=== PATIENT | female | born 1995 | race Caucasian/White ===

== ENCOUNTER 2024-01-25 15:54 | Outpatient (CLI) | payer BC, SELFPAY | END 2024-01-25 15:55 | disposition home or self-care (01) | PROVIDERS: PCP Student in an Organized Health Care Education/Training Program; Visit Provider Registered Nurse | DX: N93.9 Abnormal uterine and vaginal bleeding, unspecified (principal) | CPT/HCPCS: 80061; 82670; 83001; 83498; 84146; 84270; 84402; 84403; 84443 ==

== ENCOUNTER 2024-01-30 15:55 | Outpatient (CLI) | payer OTHER, SELFPAY | END 2024-01-30 15:56 | disposition home or self-care (01) | LOC: NFLDREF 02-20 08:16 | PROVIDERS: PCP Student in an Organized Health Care Education/Training Program; Referring Provider Student in an Organized Health Care Education/Training Program; Visit Provider Registered Nurse | DX: N92.6 Irregular menstruation, unspecified (principal) | CPT/HCPCS: 83520 ==

== ENCOUNTER 2024-03-05 13:37 | Outpatient (CLI) | payer OTHER, SELFPAY ==
--- NOTE | 2024-03-05 14:00 | CRLHL7_ITS ---
For Patients: As a result of the Century Cures Act, medical imaging exams and procedure reports are released immediately into your electronic medical record. You may view this report before your referring provider. If you have questions, please contact your health care provider. INDICATION: Irregular menstruation COMPARISON: none TECHNIQUE: 2D blanco scale and color Doppler images were acquired of the pelvis using a transabdominal and transvaginal approach. FINDINGS: Sonographic images demonstrate a normal size and smooth outer contour of the uterus. Uterus measures 6.9 cm in length by 3.4 cm in AP diameter by 5.0 cm in transverse dimension. The myometrium has a normal uniform echotexture. The endometrial lining appears normal and measures 5 mm in composite thickness. The right ovary measures 2.8 x 1.8 x 2.6 cm in size and the left ovary measures 3.7 x 2.0 x 2.1 cm. The ovaries demonstrate normal arterial and venous blood flow on color Doppler analysis. There are no suspicious fluid collections within the cul-de-sac. IMPRESSION: Normal pelvic ultrasound. Dictated by Fidel Vinson MD @ 03/06/2024 11:23:36 AM (Electronically Signed)
== END 2024-03-05 13:38 | disposition home or self-care (01) ==
LOC: US 13:39
PROVIDERS: PCP Student in an Organized Health Care Education/Training Program; Visit Provider Registered Nurse
DX: N92.6 Irregular menstruation, unspecified (principal)
CPT/HCPCS: 76830; 76856

== ENCOUNTER 2024-10-13 12:22 | Outpatient (CLI) | payer OTHER, SELFPAY | END 2024-10-13 12:23 | disposition home or self-care (01) | PROVIDERS: PCP Student in an Organized Health Care Education/Training Program; Visit Provider Advanced Practice Midwife | DX: Z34.01 Encounter for supervision of normal first pregnancy, first trimester (principal); Z67.21 Type B blood, Rh negative | CPT/HCPCS: 82306; 84702; 86850; 86900; 86901 ==

== ENCOUNTER 2024-10-15 13:00 | Outpatient (CLI) | payer OTHER, SELFPAY | END 2024-10-15 13:01 | disposition home or self-care (01) | LOC: NFLDREF 10-20 03:42 | PROVIDERS: PCP Student in an Organized Health Care Education/Training Program; Referring Provider Student in an Organized Health Care Education/Training Program; Visit Provider Midwife | DX: O20.9 Hemorrhage in early pregnancy, unspecified (principal) | CPT/HCPCS: 84702 ==

== ENCOUNTER 2024-10-17 12:13 | Outpatient (CLI) | payer OTHER, SELFPAY ==
--- NOTE | 2024-10-17 12:30 | CRLHL7_ITS ---
For Patients: As a result of the Century Cures Act, medical imaging exams and procedure reports are released immediately into your electronic medical record. You may view this report before your referring provider. If you have questions, please contact your health care provider. INDICATION: Bleeding in early COMPARISON: None TECHNIQUE: Wesley-scale and color Doppler of the g uterus from a transvaginal approach. Transvaginal ultrasound was necessary for better visualization of the uterine contents. FINDINGS: Last menstrual period: 08/28/2025 Estimated gestational age: 7 weeks 1 day FIRST TRIMESTER There is an intrauterine gestational sac that measures 38 x 8 x 24 mm for a mean sac diameter of 24 mm. This corresponds to a gestational age of 7 weeks 3 days. There is a normal yolk sac. An embryo is present with a crown-rump length of 9 mm, which corresponds to a gestational age of 6 weeks 6 days. Embryonic cardiac activity is present, at a rate of 123 bpm. There is a heterogeneously hypoechoic subchorionic hemorrhage that measures 1.2 x 0.5 x 2.2 cm. MATERNAL No worrisome ovarian or adnexal mass or cyst. Normal physiologic left corpus luteum cyst. Normal ovarian color Doppler flow. No pelvic free fluid. IMPRESSION: Single intrauterine gestation with an estimated gestational age of 6 weeks 6 days based on crown-rump length. There is a 2.2 centimeter perigestational/subchorionic hemorrhage. Dictated by Adele Franks MD @ 10/20/2024 7:26:34 AM (Electronically Signed)
== END 2024-10-17 12:14 | disposition home or self-care (01) ==
PROVIDERS: PCP Student in an Organized Health Care Education/Training Program; Visit Provider Advanced Practice Midwife
DX: O20.9 Hemorrhage in early pregnancy, unspecified (principal); Z3A.01 Less than 8 weeks gestation of pregnancy
CPT/HCPCS: 76817; 83021; 86592; 86703; 86704; 86706; 86762; 86787; 86803; 87086; 87340; 87491; 87591

== ENCOUNTER 2024-10-21 14:58 | Outpatient (CLI) | payer OTHER, SELFPAY ==
--- NOTE | 2024-10-21 15:00 | CRLHL7_ITS ---
For Patients: As a result of the Century Cures Act, medical imaging exams and procedure reports are released immediately into your electronic medical record. You may view this report before your referring provider. If you have questions, please contact your health care provider. INDICATION: First trimester scan, establish dates. TECHNIQUE: Real-time blanco-scale imaging of the pelvis was performed. FINDINGS: Sonographic imaging demonstrates a single living intrauterine gestation. The embryo demonstrates a regular cardiac rate measuring 154 beats per minute. The embryo`s crown-rump length measurement of 1.3 cm corresponds to a gestational age of 7 weeks 4 days with a sonographic due date of 06/05/2025 . There is a normal-appearing yolk sac. Subchorionic hemorrhage measuring 0.6 x 0.3 x 1.1 centimeters. IMPRESSION: Early intrauterine gestation. Gestational age calculated at 7 weeks 4 days with a sonographic due date of 06/05/2025. Small subchorionic hemorrhage measuring 0.6 x 0.3 x 1.1 cm. Dictated by Jenifer Andre MD @ 10/22/2024 7:43:33 AM (Electronically Signed)
== END 2024-10-21 14:59 | disposition home or self-care (01) ==
LOC: US 14:59
PROVIDERS: PCP Student in an Organized Health Care Education/Training Program; Visit Provider Advanced Practice Midwife
DX: Z34.91 Encounter for supervision of normal pregnancy, unspecified, first trimester (principal); O20.9 Hemorrhage in early pregnancy, unspecified; Z3A.01 Less than 8 weeks gestation of pregnancy
CPT/HCPCS: 76817

== ENCOUNTER 2024-11-05 22:52 | Emergency (ER) | payer OTHER, SELFPAY ==
--- OUTSIDE RECORDS SUMMARY | 2024-11-05 22:54 | XMS_ITS | Clinical Summary ---
Author Organization [facility] Address [place], [place] [address] Care Team Providers Care Inside Contractor Sales Name Role Phone Sirisha Nelson MD Primary Care Prov ider Allergies No known active allergies Medications No known medications Active Problems Problem Noted Date Diagnosed Date Pap smear for cervical cancer screening 10/24/19 Overview (10/24/2023): 10/2023 NIL/HPV negative. Plan: Pap/HPV due 10/2028. Resolved Problems Problem Noted Date Diagnosed Date Resolved Date Dysmenorrhea 12/09/2013 10/15/2023 Tachycardia, unspecified 11/25/2012 Encounters Date Type Department Care Team Description 10/21/2024 Orders Only [facility] Scanner 1 scan: (1-Ord) [facility] OB TRANSVAG[facility]AL, 10/21/2024 10/17/2024 Orders Only [facility] Scanner 1 scan: (1-Ord) [facility] TRAN[facility], 10/17/2024 from Last 3 Months Immunizations Name Administration Dates Next Due DTaP 06/05/2000, 7,05/26/1996,03/25,01/22/1996 DTaP-HIB (TriHIBIT) 02/10/1997 HIB HbOC (HibTITER) 05/26/1996,03/25/1996,1995 HPV 9 (Gardasil 9) 09/21/2016 Hepatitis B (Adult) 11/04/2019 Hepatitis B (Peds) 09/15/1996,01/22/1996, 996 Inactivated Polio Vaccine 06/05/2000 Influenza, IIV3 (Age >=3 years) 09/26/2010,11/22 Influenza, IIV4 10/24/2019 MENINGOCOCCAL VACCINE 2 VIAL 2MO-55YO (MENVEO) 12/09/2013,04/26/2011 MMR 06/05/2000,02/10/1997 Oral Polio Vaccine 05/26/1996,03/25/1996, 996 Tdap 07/18/2018,04/13/2008 Varicella Vaccine 04/26/2011,12/31/1996 Family History Medical History Relation Name Comments Graves' disease Brother Other Father idiopathic azam oedema Good Health Maternal Grandfather Heart Disease Maternal Grandmother stent Other Maternal Grandmother brain t umor, not sure if cancer, doing radiation to shrink it Good Health Mother Heart Disease Paternal Grandfather valve replaced Cancer-ovarian Paternal Grandmother Hyperlipidemia Paternal Grandmother Hypertension Paternal Grandmother Relation Name Status Comments Brother Father Maternal Grandfather Alive Maternal Grandmother Mother Paternal Grandfather Paternal Grandmother Alive Social History Tobacco Use Types Packs/Day Years Used Date Smoking Tobacco: Never Smokeless Tobacco: Never Tobacco Cessation:Counseling Given: Yes Alcohol Use Standard Drinks/Week Comments Yes 0 (1 standard drink = 0.6 oz pur e alcohol) weekends PHQ-2 Answer Date Recorded PHQ-2 TOTAL SCORE 0 10/15/2023 Social Connections Answer Date Recorded Do you often feel lonely or isolated from those around you? 0 10/15/2023 Financial Resource Strain Answer Date R ecorded Difficulty of Paying Living Expenses 3 10/15/2023 Difficulty of Paying Living Expenses Not on file 10/15/2023 Food Insecurity Answer Date Recorded Do you worry your food will run out before you are able to buy more? 1 10/15/2023 Transportation Needs Answer Date Record ed Does lack of transportation keep you from medica l appointments? 1 10/15/2023 Does lack of transportation keep you from work, meetings or getting things that you need? 1 10/15/2023 Housing Stability Answer Date Recorded What is your housing situation today? 1 10/15/2023 Utilities Answer Date Recorded Do you have trouble paying f or utilities (for example, heat, electricity, water, phone)? 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 Not on asif e Not on file Obstetrics History Last Filed Vital Signs Vital Sign Reading Time Taken Comments Blood Pressure 108/72 10/15/2023 3:24 PM CHAR CONVEYOR TENDER Pulse 77 10/15/2023 3:24 PM CHAR CONVEYOR TENDER Temperature 36.7 C (98.1 F) 10/24/2019 12:56 PM CHAR CONVEYOR TENDER Respiratory Rate - - Oxygen Saturation 100% 10/15/2023 3:24 PM CHAR CONVEYOR TENDER Inhaled Oxygen Concentration - - Weight 73 kg (161 lb) 10/15/2023 3:24 PM CHAR CONVEYOR TENDER Height 161.8 cm (5' 3.7) 10/15/2023 3:24 PM CHAR CONVEYOR TENDER Body Mass Index 27.9 10/15/2023 3:24 PM CHAR CONVEYOR TENDER Plan of Treatment Health Maintenance Due Date Last Done Comments HIV for age 15-65 2010 Hepatitis C screening for age 18-79 2013 COVID-19 vaccine series ( season) 2024 Influenza for age 9-49 06/01/2024 0, 09/26/2010, 2006 BMI (ht and wt on same day) for age 18+ 10/15/2024 10/15/2023, 10/24/2019, 07/18/2018, Additional history exists Depression screening for age 12+ 10/15/2024 10/15/2023, 10/24/2019, 07/18/2018, Additional history exists Tetanus booster 07/18/2028 07/18/2018, 04/13/2008 Pap test for age 21-65 10/15/2028 , 10/15/2023, 07/18/2018 Tdap Completed 07/18/2018, 04/13/2008 Pneumococcal series for age 6-49 Aged Out No longer eligible based on patient's age to complete this topic Procedures Procedure Name Priority Date/Time Associated Diagnosis Comments SCAN-ULTRASOUND REPORT 10/21/2024 12:00 AM CHAR CONVEYOR TENDER SCAN-ULTRASOUND REPORT 10/17/2024 12:00 AM CHAR CONVEYOR TENDER HPV HIGH RISK Routine 10/15/2023 4:00 PM CHAR CONVEYOR TENDER Cervical cancer screening from Last 3 Months or Most Recently Relevant to Health Maintenance Results * SCAN-ULTRASOUND REPORT (10/21/2024 12:00 AM CHAR CONVEYOR TENDER) Only the most recent of2 resultswithin the time period is included. Anatomical Region Laterality Modality Other us Scanner OTHER Final Result * HPV HIGH RISK (10/15/2023 4:00 PM CHAR CONVEYOR TENDER) TYPE 16 Negative Negative 10/18/2023 11:35 AM CHAR CONVEYOR TENDER [facility] TYPE 18 Negative Negative 10/18/2023 11:35 AM CHAR CONVEYOR TENDER [facility] OTHER HIGH RISK TYPES Negative Negative 10/18/2023 11:35 AM CHAR CONVEYOR TENDER [facility] Other (Cervical) Non-Blood / Unknown 10/15/2023 4:00 PM CHAR CONVEYOR TENDER 10/16/2023 2:26 PM CHAR CONVEYOR TENDER Narrative [facility] - 10/18/2023 11:35 AM CHAR CONVEYOR TENDER HPV types 16, 18, 31, 33, 35, 39, 45, 51, 52, 56, 58, 59, 66 and 68 DNA were undetectable or below the pre-set threshold. Methodology: Renaldo Ned 4800 HPV Test us Sirisha Nelson MD MICROBIOLOGY Fi nal Result [facility] [address] [place] [address], from Last 3 Months or Most Recently Relevant to Health Maintenance Insurance [facility] HP KOMAL MENDOZA [id number] Care Teams Inside Contractor Sales Relationship Specialty Start Date End Date Sirisha Nelson [place] [address] PCP - General Family Practice 10/15/23
[2024-11-05 22:56] VITALS: BP 154/75; PULSE 110; RESP 20; TEMP 37.6; O2SAT 99; BMI 26.6
--- NOTE | 2024-11-05 23:03 | ED.GENADULT ---
HPI - General Adult General Chief complaint: Vaginal Bleeding Stated complaint: 10 wks , bleeding Time Seen by Provider: 11/05/24 23:03 History of Present Illness HPI narrative: CC: Vaginal Bleeding pt. 10 weeks . started spotting today and then heavier tonight about 1/2 hour ago. denies n /v, diarrhea, fevers, dizziness. 28-year-old young woman presenting to the emergency department with concern of vaginal bleeding. She is at approximately 10 weeks. Today been experiencing some cramping across the low abdomen. Been seeing some spotting. After laying down for a time cut up and had a gush of bright blood and maybe a golf ball size clot. Came to the emergency department having soaked through a pad. She thinks she is still bleeding. She is not feeling short of breath or nor lightheaded. Less breast tenderness than before. Seen in office on 10/17/2024 with vaginal spotting ultrasound at that time showed a subchorionic hemorrhage measuring 2.2 cm maximal dimension. On follow-up 10/21/24 ultrasound was noted to have a small subchorionic hemorrhage measuring maximally 1.1 cm Discussion around RhoGAM administration was had and chosen not to as both Ashley her are Rh negative. Related Data Home Medications ?Medication ?Instructions ?Recorded ?Confirmed docosahexaenoic acid 200 mg 200 mg PO DAILY 07/02/24 11/05/24 capsule ( DHA) Allergies Allergy/AdvReac Type Severity Reaction Status Date / Time No Known Drug Allergies Allergy Verified 11/05/24 23:00 Review of Systems Status of ROS: Reports: 6 or more systems reviewed and unremarkable except as noted in History and below [facility] Medical History No significant past medical history Surgical History (Updated 11/05/24 @ 23:04 by Daniel Joshi RN) No significant past surgical history Family History Aunt FH: mental illness Brother Graves' disease Paternal Grandfather Stroke Other Thyroid disease Social History Narrative: Occupational Therapist. SOCIAL? ? Education: Bachelor'? ? Work: special education educational assistant? ? Partner: Kristan? works waste water treatment for [employer] Lives with: Kristan, father in-law lives with them? ? Pets: hobby farm one dog and a cat, chickens goats donkey and cow? ? Abuse: Denies past ? Unable to assess current, partner present? ? Special Diet: Denies? ? Ok with a blood transfusion: yes? ? Culture or anglican beliefs: denies? RISK FACTORS? ? Exercise Times/wk: 2-3 times a week mostly walking more active in summer? ? Depression/Anxiety: denies? ? Previous Treatments NA ? Therapy NA ЕЛЕНА: 0 PHQ 9: 0? ? Seat Belt Use: Routinely ? Smoking: Denies past/present? ? Alcohol/day: Denies while ? ?when not [id number] beers on weekend if that Caffeine: nothing since , occasional use prior? ? Drug Use: Denies past/present? What is your current living situation?: I presently have a place to live Problems where you live: no known problems In the past 12 months, utilities in danger of being shut off: no In past 12 months, lack of transportation kept you from medical appts, meetings, work, or getting things needed for daily living: no In the past 12 mos, have been you worried that your food would run out before you had money to buy more?: never true In the past 12 mos, the food you bought just didn't last and you didn't have money to buy more?: never true Smoking Status: Never smoker Second hand tobacco smoke exposure: No How often do you have a drink containing alcohol: never AUDIT-C Alcohol total score: 0 Non-prescribed substance use: denies use How often does anyone, including family, friends and others, physically hurt you: never How often does anyone, including family, friends and others, insult or talk down to you: never How often does anyone, including family, friends and others, threaten you with harm: never How often does anyone, including family, friends and others, scream or curse at you: never Exam Narrative: Exam Narrative: Pleasant. Has been tearful. Face was flushed. Skin is warm and dry. Is well-perfused. Heart rate is elevated in a regular rhythm. Breathing easily. Abdomen is soft and mildly tender through the low pelvis. Genitourinary exam is not done. Const: Vital Signs, click to edit/add: Vital Signs - 24 hr 11/05/24 22:56 Temperature 99.6 F Pulse Rate [Right Pulse Oximeter] 110 H Respiratory Rate 20 Blood Pressure [Le ft Upper Arm] 154/75 H Pulse Oximetry 99 Oxygen Delivery Me thod Room Air Documenting provider has reviewed patient's vital signs: yes Course Vital Signs Vital signs: Initial Vital Signs Temperature 99.6 F 11/05/24 22:56 Temperature Source Temporal Artery Scan 11/05/24 22:56 Pulse Rate 110 H 11/05/24 22:56 Respiratory Rate 20 11/05/24 22:56 Blood Pressure 154/75 H 11/05/24 22:56 Blood Pressure Mean 101 11/05/24 22:56 Blood Pressure Position Sitting 11/05/24 22:56 Pulse Oximetry 99 11/05/24 22:56 Oxygen Delivery Method Room Air 11/05/24 22:56 Vital Signs Temperature 99.6 F 11/05/24 22:56 Pulse Rate 110 H 11/05/24 22:56 Respiratory Rate 20 11/05/24 22:56 Blood Pressure 154/75 H 11/05/24 22:56 Pulse Oximetry 99 11/05/24 22:56 Oxygen Delivery Method Room Air 11/05/24 22:56 Temperature 99.6 F 11/05/24 22:56 Pulse Rate 110 H 11/05/24 22:56 Respiratory Rate 20 11/05/24 22:56 Blood Pressure 154/75 H 11/05/24 22:56 Pulse Oximetry 99 11/05/24 22:56 Oxygen Delivery Method Room Air 11/05/24 22:56 Medical Decision Making MDM Narrative Medical decision making narrative: Upon arrival have requested ultrasound. This does sound like more bleeding than mobilizing the subchorionic hemorrhage. Will check hemoglobin and monitor for further symptoms. Certainly have concerns of miscarriage at this time. Discussed potential need for RhoGAM and answers similar to prior that probably would not want that; she and are Rh negative.. Pending results of ultrasound may add serum HCG to laboratory analysis. Discussed findings with wall washer. Appears to have been a complete miscarriage. Discussed findings with Ashley and her . Confirmed ultrasound findings with radiology over-read as below INDICATION: Bleeding in early . COMPARISON: OB ultrasound 10/21/2024. TECHNIQUE: 2D grayscale and color Doppler images were acquired of the pelvis using a transabdominal approach. FINDINGS: The uterus is anteverted and measures 9.8 cm in length by 5.6 cm in AP diameter by 6.7 cm in transverse dimension. The myometrium has uniform echotexture. The endometrial lining appears heterogeneous and measures 12 mm in composite thickness. The previously seen intrauterine gestation is no longer visualized. No abnormal endometrial blood flow. The right ovary was not visualized. The left ovary measures 3.0 x 2.1 x 2.9 cm. No free fluid in the pelvic cul-de-sac. IMPRESSION: 1. The previously seen intrauterine gestation is no longer visualized compatible with failure/miscarriage. 2. Heterogeneous endometrial stripe. No definite findings to suggest retained products of conception. No further symptoms though is continuing to bleed; this is not unexpected. Monitor closely. Unfortunately it does look like you have miscarried. I am sorry this has happened to you. Would expect you to bleed for a while yet. Stay well-hydrated. Be seen/return for bleeding such that you are soaking through 1 heavy/overnight pad an hour for 2 consecutive hours, sensations of shortness of breath or persistent lightheadedness, fever, uncontrolled pain. Medical Records Medical records reviewed: Yes I reviewed the patient's medical records Lab Data Lab results reviewed: Yes I reviewed the patient's lab results Labs: Lab Results 11/05/24 Range/Units 23:05 Hgb 12.2 (12.0-16.0) gm/dL Discharge Plan Discharge Clinical Impression: Complete miscarriage Patient Disposition: Home w/ Parent or Adult Condition: Stable Additional Instructions: Unfortunately it does look like you have miscarried. I am sorry this has happened to you. Would expect you to bleed for a while yet. Stay well-hydrated. Be seen/return for bleeding such that you are soaking through 1 heavy/overnight pad an hour for 2 consecutive hours, sensations of shortness of breath or persistent lightheadedness, fever, uncontrolled pain. Prescriptions: No Action DHA 200 mg capsule 200 mg PO DAILY Follow Up/Referrals: Sirisha Nelson MD [Primary Care Provider] - Stand Alone [facility]
[2024-11-05 23:15] LABS: Hemoglobin* 12.2 gm/dL (12.0-16.0)
--- OUTSIDE RECORDS SUMMARY | 2024-11-05 23:22 | XMS_ITS | Clinical Summary ---
Author Organization [facility] Address [place], [place] [address] Care Team Providers Care Manager Research And Development Name Role Phone Sirisha Nelson MD Primary [...] Department Care Team Description 10/21/2024 Orders Only [facility] Scanner 1 scan: (1-Ord) [facility] TRANSVAG[facility], 10/21/2024 10/17/2024 Orders Only [facility] Scanner 1 scan: (1-Ord) [facility], 10/17/2024 from Last 3 Months [...] on file Legal Sex Female 5:42 AM STENO TYPIST Gender Identity Not on file Sexual Orientation Not on file 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 on asif e Not on file Obstetrics History Last Filed Vital Signs Vital Sign Reading Time Taken Comments Blood Pressure 108/72 10/15/2023 3:24 PM STENO TYPIST Pulse 77 10/15/2023 3:24 PM STENO TYPIST Temperature 36.7 C (98.1 F) 10/24/2019 12:56 PM STENO TYPIST Respiratory Rate - - Oxygen Saturation 100% 10/15/2023 3:24 PM STENO TYPIST Inhaled Oxygen Concentration - - Weight 73 kg (161 lb) 10/15/2023 3:24 PM STENO TYPIST Height 161.8 cm (5' 3.7) 10/15/2023 3:24 PM STENO TYPIST Body Mass Index 27.9 10/15/2023 3:24 PM STENO TYPIST Plan of Treatment Health Maintenance Due Date [...] Diagnosis Comments SCAN-ULTRASOUND REPORT 10/21/2024 12:00 AM STENO TYPIST SCAN-ULTRASOUND REPORT 10/17/2024 12:00 AM STENO TYPIST HPV HIGH RISK Routine 10/15/2023 4:00 PM STENO TYPIST Cervical cancer screening from Last 3 Months or Most Recently Relevant to Health Maintenance Results * SCAN-ULTRASOUND REPORT (10/21/2024 12:00 AM STENO TYPIST) Only the most recent of2 resultswithin the time period is included. Anatomical Region Laterality Modality Other us Scanner OTHER Final Result * HPV HIGH RISK (10/15/2023 4:00 PM STENO TYPIST) TYPE 16 Negative Negative 10/18/2023 11:35 AM STENO TYPIST [facility] TYPE 18 Negative Negative 10/18/2023 11:35 AM STENO TYPIST [facility] OTHER HIGH RISK TYPES Negative Negative 10/18/2023 11:35 AM STENO TYPIST [facility] Other (Cervical) Non-Blood / Unknown 10/15/2023 4:00 PM STENO TYPIST 10/16/2023 2:26 PM STENO TYPIST Narrative [facility] - 10/18/2023 11:35 AM STENO TYPIST HPV types 16, 18, 31, 33, 35, 39, 45, 51, 52, 56, 58, 59, 66 and 68 DNA were undetectable or below the pre-set threshold. Methodology: Renaldo Ned 4800 HPV Test us Sirisha Nelson MD MICROBIOLOGY Fi nal Result [facility] [address] [place] [address], from Last 3 Months or Most Recently Relevant to Health Maintenance [facility] HP KOMAL MENDOZA [id number] Care Teams Manager Research And Development Relationship Specialty Start Date End Date Sirisha Nelson [place] [address] PCP - General Family Practice 10/15/23
--- NOTE | 2024-11-06 00:24 | PC.NURSE ---
pt assist to standing position. expelled large clots. Denies dizziness. does state she have a fair amount of cramping. Pt very pale.
[2024-11-06 00:28] VITALS: BP 103/68; PULSE 95; RESP 20; TEMP 37.6; O2SAT 99
[2024-11-06 00:37] VITALS: BP 106/65; PULSE 97; RESP 20; TEMP 37.6; O2SAT 99
--- NOTE | 2024-11-06 00:38 | PC.NURSE ---
0035 pt ambulating to triage area and stated she felt very dizzy. In w/c and back to room. taking juice 106/65 HR 95.
[2024-11-06 01:12] VITALS: O2SAT 99
[2024-11-06 01:33] VITALS: BP 131/67; PULSE 92; RESP 20; TEMP 37; O2SAT 99
[2024-11-06 01:42] VITALS: BP 131/67; PULSE 92; RESP 20; TEMP 37
== END 2024-11-06 01:42 | disposition home or self-care (01) ==
PROVIDERS: Emergency Provider Family Medicine; PCP Student in an Organized Health Care Education/Training Program
DX: O03.9 Complete or unspecified spontaneous abortion without complication (principal)
CPT/HCPCS: 36415; 76801; 85018; 94761; 99284

== ENCOUNTER 2024-11-10 16:14 | Emergency (ER) | payer OTHER, SELFPAY ==
--- OUTSIDE RECORDS SUMMARY | 2024-11-10 16:16 | XMS_ITS | Clinical Summary ---
Author Organization [facility] Address [place], [place] [address] Care Team Providers Care Meat Manager Name Role Phone Sirisha Nelson MD Primary [...] Encounters Date Type Department Care Team Description 11/05/2024 Orders Only [facility] Scanner 1 scan: (1-Ord) [facility], OB 14 WEEKS FETUS, 11/05/2024 10/21/2024 Orders Only [facility] Scanner 1 scan: (1-Ord) [facility] OB TRANSVAGINAL, 10/21/2024 10/17/2024 Orders Only [facility] Scanner 1 scan: (1-Ord) [facility] OB TRANSVAGINAL, 10/17/2024 from Last 3 [...] on file Legal Sex Female 5:42 AM CLOTHES MARKER Gender Identity Not on file Sexual Orientation Not on file 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 Not on file Not on asif e Not on file Obstetrics History Last Filed Vital Signs Vital Sign Reading Time Taken Comments Blood Pressure 108/72 10/15/2023 3:24 PM CLOTHES MARKER Pulse 77 10/15/2023 3:24 PM CLOTHES MARKER Temperature 36.7 C (98.1 F) 10/24/2019 12:56 PM CLOTHES MARKER Respiratory Rate - - Oxygen Saturation 100% 10/15/2023 3:24 PM CLOTHES MARKER Inhaled Oxygen Concentration - - Weight 73 kg (161 lb) 10/15/2023 3:24 PM CLOTHES MARKER Height 161.8 cm (5' 3.7) 10/15/2023 3:24 PM CLOTHES MARKER Body Mass Index 27.9 10/15/2023 3:24 PM CLOTHES MARKER Plan of Treatment Health Maintenance Due Date [...] 04/13/2008 Pap test for age 21-65 10/15/2028 4, 10/15/2023, 07/18/2018 Tdap Completed 07/18/2018, 04/13/2008 Pneumococcal series for age 6-49 Aged Out No longer eligible based on patient's age to complete this topic Procedures Procedure Name Priority Date/Time Associated Diagnosis Comments SCAN-ULTRASOUND REPORT 11/05/2024 12:00 AM CLOTHES MARKER SCAN-ULTRASOUND REPORT 10/21/2024 12:00 AM CLOTHES MARKER SCAN-ULTRASOUND REPORT 10/17/2024 12:00 AM CLOTHES MARKER HPV HIGH RISK Routine 10/15/2023 4:00 PM CLOTHES MARKER Cervical cancer screening from Last 3 Months or Most Recently Relevant to Health Maintenance Results * SCAN-ULTRASOUND REPORT (11/05/2024 12:00 AM CLOTHES MARKER) Only the most recent of3 resultswithin the time period is included. Anatomical Region Laterality Modality Other us Scanner OTHER Final Result * HPV HIGH RISK (10/15/2023 4:00 PM CLOTHES MARKER) TYPE 16 Negative Negative 10/18/2023 11:35 AM CLOTHES MARKER [facility] TYPE 18 Negative Negative 10/18/2023 11:35 AM CLOTHES MARKER [facility] OTHER HIGH RISK TYPES Negative Negative 10/18/2023 11:35 AM CLOTHES MARKER [facility] Other (Cervical) Non-Blood / Unknown 10/15/2023 4:00 PM CLOTHES MARKER 10/16/2023 2:26 PM CLOTHES MARKER Narrative [facility] - 10/18/2023 11:35 AM CLOTHES MARKER HPV types 16, 18, 31, 33, 35, 39, 45, 51, 52, 56, 58, 59, 66 and 68 DNA were undetectable or below the pre-set threshold. Methodology: Renaldo Ned 4800 HPV Test us Sirisha Nelson MD MICROBIOLOGY Fi nal Result [facility] [address] [place] [address], [place] from Last 3 Months or Most Recently Relevant to Health Maintenance Insurance [facility] KOMAL MENDOZA [id number] Care Teams Meat Manager Relationship Specialty Start Date End Date Sirisha Nelson [place] [address] PCP - General Family Practice 10/15/23
[2024-11-10 16:26] VITALS: BP 131/80; PULSE 95; RESP 16; TEMP 36.9; O2SAT 99; BMI 25.7
--- NOTE | 2024-11-10 16:40 | CRLHL7_ITS ---
For Patients: As a result of the Century Cures Act, medical imaging exams and procedure reports are released immediately into your electronic medical record. You may view this report before your referring provider. If you have questions, please contact your health care provider. INDICATION: Recent miscarriage, continued pain and bleeding. TECHNIQUE: Ultrasound pelvis transvaginal for better assessment or to better visualize the endometrium. Real-time sonographic images with spectral and color Doppler imaging of the ovaries were obtained. COMPARISON: OB ultrasound 11/05/2024. FINDINGS: Uterus: 9.3 x 5.4 x 6.4 cm. Normal echotexture of the myometrium. No masses. Endometrium: Thickness measures 7 mm. The endometrial stripe is echogenic, but otherwise unremarkable. No focal fluid collection or discrete focus of hyperemia. Right ovary measures 3.5 x 1.7 x 2.3 cm. Left ovary measures 3.3 x 2.0 x 2.5 cm. No ovarian or adnexal masses. Normal arterial and venous blood flow is demonstrated in both ovaries. Cul-de-sac: No significant free fluid. IMPRESSION: 1. Normal endometrial stripe thickness. No convincing evidence for retained products of conception. 2. Unremarkable ovaries. Dictated by Marco Huddleston MD @ 11/10/2024 6:04:37 PM (Electronically Signed)
--- NOTE | 2024-11-10 17:26 | ED.GENADULT ---
HPI - General Adult General Time Seen by Provider: 17:28 Date Seen: 11/10/24 Chief complaint: Post OB/Post- Complication Stated complaint: Complications post miscarriage 5 days ago Time Seen by Provider: 11/10/24 17:17 Source: patient, RN notes reviewed and old records reviewed Mode of arrival: ambulatory Limitations: no limitations History of Present Illness HPI narrative: This 28-year-old female is coming in with concerns of increased pain in the setting of a miscarriage. She had a miscarriage 5 days ago on Sunday. She has had ongoing bleeding but she describes this is light now. She had been using ibuprofen, taking 1 tablet about every 6-8 hours. Today, her pain and cramping increased, she took a pill at 12:30 p.m. and it did not help at all. She states her pain is better now. She did call the clinic and they recommended she come to the ER. She has been changing her pad maybe once a day right now. She was seen in the ER on November 05, was about 10 weeks and had started spotting. Her ultrasound from November 05 showed that the intrauterine gestation was no longer visualized compatible with failure /miscarriage. She did have a heterogeneous endometrial stripe, no definite findings to suggest retained products of conception. Patient is B negative blood type, her 's Rh is negative, she has declined RhoGAM from prior visits. She notes no fevers. Related Data Home Medications ?Medication ?Instructions ?Recorded ?Confirmed No Known Home Medications 11/10/24 11/10/24 Allergies Allergy/AdvReac Type Severity Reaction Status Date / Time No Known Drug Allergies Allergy Verified 11/05/24 23:00 Review of Systems Status of ROS: Reports: 6 or more systems reviewed and unremarkable except as noted in History and below [facility] Medical History No significant past medical history Surgical History No significant past surgical history Family History Aunt FH: mental illness Brother Graves' disease Paternal Grandfather Stroke Other Thyroid disease Social History Narrative: Occupational Therapist. SOCIAL? ? Education: Bachelor'? ? Work: library clerical assistant? ? Partner: Kristan? works waste water treatment for [employer] Lives with: Kristan, father in-law lives with them? ? Pets: hobby farm one dog and a cat, chickens goats donkey and cow? ? Abuse: Denies past ? Unable to assess current, partner present? ? Special Diet: Denies? ? Ok with a blood transfusion: yes? ? Culture or quaker beliefs: denies? RISK FACTORS? ? Exercise Times/wk: 2-3 times a week mostly walking more active in summer? ? Depression/Anxiety: denies? ? Previous Treatments NA ? Therapy NA ЕЛЕНА: 0 PHQ 9: 0? ? Seat Belt Use: Routinely ? Smoking: Denies past/present? ? Alcohol/day: Denies while ? ?when not [id number]-4-3 beers on weekend if that Caffeine: nothing since , occasional use prior? ? Drug Use: Denies past/present? What is your current living situation?: I presently have a place to live Problems where you live: no known problems In the past 12 months, utilities in danger of being shut off: no In past 12 months, lack of transportation kept you from medical appts, meetings, work, or getting things needed for daily living: no In the past 12 mos, have been you worried that your food would run out before you had money to buy more?: never true In the past 12 mos, the food you bought just didn't last and you didn't have money to buy more?: never true Smoking Status: Never smoker Second hand tobacco smoke exposure: No How often do you have a drink containing alcohol: never AUDIT-C Alcohol total score: 0 Non-prescribed substance use: denies use How often does anyone, including family, friends and others, physically hurt you: never How often does anyone, including family, friends and others, insult or talk down to you: never How often does anyone, including family, friends and others, threaten you with harm: never How often does anyone, including family, friends and others, scream or curse at you: never Exam Const: Vital Signs, click to edit/add: Vital Signs - 24 hr 11/10/24 16:26 Temperature 98.4 F Pulse Rate [Pulse Oximeter] 95 Respiratory Rate 16 Blood Pressure [Ri ght Upper Arm] 131/80 Pulse Oximetry 99 Oxygen Delivery Me thod Room Air This 28-year-old female is alert, interactive, no apparent distress. Face mildly pale but sclera clear, conjunctiva normal. If speak in complete sentences. Lungs clear, no tachypnea, normal breathing without any evidence of crackles or wheezing. CV regular rate and rhythm, no murmur. Abdomen is soft, nontender, nondistended, do not feel any organomegaly. She really does not have any suprapubic tenderness on palpation. Pelvic exam deferred at this point. Documenting provider has reviewed patient's vital signs: yes Course Course ED Course: Labs and pelvic ultrasound had been ordered during triage due to the volume and acuity in the ED. we are waiting the radiology over read of the ultrasound, she still does need her labs drawn. It does not sound like her bleeding is heavy, cramping may have been more severe today but she is really not requiring any significant outpatient medicines, per history she is relatively under dosing on medications. Will await the ultrasound, will get her CBC to ensure hemoglobin stability. Will talk to Ob once I have these results back. Patient states her pain is better now, declines anything for pain. Reevaluation(s) Time of Reevaluation #1: 18:56 Reevaluation #1: Have spoken with OB on-call Dr. Magaña. We have reviewed case, she is fine with discharge to home. Time of Reevaluation #2: 19:15 Reevaluation #2: Have reviewed with patient the normal ultrasound. Her labs are reassuring. Will discharge to home at this time for further outpatient follow-up. Vital Signs Vital signs: Initial Vital Signs Temperature 98.4 F 11/10/24 16:26 Temperature Source Temporal Artery Scan 11/10/24 16: Pulse Rate 95 11/10/24 16:26 Respiratory Rate 16 11/10/24 16: Blood Pressure 131/80 11/10/24 16: Blood Pressure Mean 97 11/10/24 16: Blood Pressure Position Sitting 11/10/24 16:26 Pulse Oximetry 99 11/10/24 16:26 Oxygen Delivery Method Room Air 11/10/24 16:26 Vital Signs Temperature 98.4 F 11/10/24 16:26 Pulse Rate 95 11/10/24 16:26 Respiratory Rate 16 11/10/24 16:26 Blood Pressure 131/80 11/10/24 16:26 Pulse Oximetry 99 11/10/24 16:26 Oxygen Delivery Method Room Air 11/10/24 16:26 Temperature 98.4 F 11/10/24 16:26 Pulse Rate 95 11/10/24 16:26 Respiratory Rate 16 11/10/24 16:26 Blood Pressure 131/80 11/10/24 16:26 Pulse Oximetry 99 11/10/24 16:26 Oxygen Delivery Method Room Air 11/10/24 16:26 Medical Decision Making Lab Data Lab results reviewed: Yes I reviewed the patient's lab results Lab results narrative: Hemoglobin on November 05 was 12.2, October 17 12.9. Labs: Lab Results 11/10/24 Range/Units 17:47 WBC 10.02 (4.50-11.00) K/uL RBC 3.72 L (4.00-5.20) m/uL Hgb 11.1 L (12.0-16.0) gm/dL Hct 32.9 L (33.0-51.0) % MCV 88 (80-100) fL MCH 30 (26-34) pg MCHC 34 (32-36) gm/dL RDW Coeff of Yuliya 12.0 (11.5-15.5) % Plt Count 308 (140-440) K/uL Neut % (Auto) 68.9 (42.0-72.0) % Lymph % (Auto) 21.9 (20-44) % Barton % (Auto) 6.3 (0.0-11.0) % Eos % (Auto) 2.0 (0.0-7.0) % Baso % (Auto) 0.7 (0.0-3.0) % Neut # (Auto) 6.91 (1.7-7.0) K/uL Lymph # (Auto) 2.19 (0.90-2.90) K/uL Barton # (Auto) 0.60 (0.00-0.90) K/UL Eos # (Auto) 0.20 (0.00-0.50) K/uL Baso # (Auto) 0.07 (0.00-0.30) K/uL Abs Immat Gran (auto) 0.02 (0.00-0.30) K/uL Imm/Tot Granulo (auto) 0.2 % HCG, Quant 7339.20 mIU/mL Imaging Data US pelvis/OB: Attestation: I have reviewed the pertinent imaging results. Radiologist's impression: Patient: MADIE URRUTIA Facility:?[facility] RIS Patient ID:?[id number] Site Patient ID:?[id number]. Site :?[id number] Study:?US-Pelvis US PELVIS TV-11/10/2024 5:24:48 PM Ordering Physician:?Hemant Carlson Final Report: INDICATION: Recent miscarriage, continued pain and bleeding. TECHNIQUE: Ultrasound pelvis transvaginal for better assessment or to better visualize the endometrium. Real-time sonographic images with spectral and color Doppler imaging of the ovaries were obtained. COMPARISON: OB ultrasound 11/05/2024. FINDINGS: Uterus: 9.3 x 5.4 x 6.4 cm. Normal echotexture of the myometrium. No masses. Endometrium: Thickness measures 7 mm. The endometrial stripe is echogenic, but otherwise unremarkable. No focal fluid collection or discrete focus of hyperemia. Right ovary measures 3.5 x 1.7 x 2.3 cm. Left ovary measures 3.3 x 2.0 x 2.5 cm. No ovarian or adnexal masses. Normal arterial and venous blood flow is demonstrated in both ovaries. Cul-de-sac: No significant free fluid. IMPRESSION: 1. Normal endometrial stripe thickness. No convincing evidence for retained products of conception. 2. Unremarkable ovaries. Dictated by Marco Huddleston MD @ 11/10/2024 6:04:37 PM (Electronic Signature) Discharge Plan Discharge Clinical Impression: Complete miscarriage Patient Disposition: Home, Self-Care Condition: Stable Instructions: Miscarriage (ED) Additional Instructions: Follow-up with obstetric stops within the next week, sooner if further concerns. Ultrasound is reassuring for no retained products of conception. Take Tylenol 1000 mg 3 times a day baseline for pain management. Supplement with ibuprofen 600 mg 3 to 4 times a day as needed for extra pain management. Take the ibuprofen with food to help protect your stomach. If further concerns or issues, contact OB for further guidance; if heavy bleeding, fever develop, return to ED. Activity Level: Activity as Tolerated Prescriptions: No Action No Known Home Medications Follow Up/Referrals: Sirisha Nelson MD [Primary Care Provider] - Stand Alone Forms: [employer] Info Instructions
--- OUTSIDE RECORDS SUMMARY | 2024-11-10 17:44 | XMS_ITS | Clinical Summary ---
Author Organization [employer] [facility] Address [place], [place] [address] Care Team Providers Care Computer Network Support Specialist Name Role Phone Sirisha Nelson MD Primary [...] Department Care Team Description 11/05/2024 Orders Only [facility] Scanner 1 scan: (1-Ord) [facility], OB 14 WEEKS FETUS, 11/05/2024 10/21/2024 Orders Only [facility] Scanner 1 scan: (1-Ord) [facility] OB TRANSVAGINAL, 10/21/2024 10/17/2024 Orders Only [facility] Scanner 1 scan: (1-Ord) 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.] Diagnosis Comments SCAN-ULTRASOUND REPORT 11/05/2024 12:00 AM VOLLEYBALL COACH SCAN-ULTRASOUND REPORT 10/21/2024 12:00 AM VOLLEYBALL COACH SCAN-ULTRASOUND REPORT 10/17/2024 12:00 AM VOLLEYBALL COACH HPV HIGH RISK Routine 10/15/2023 4:00 PM VOLLEYBALL COACH Cervical cancer screening from Last 3 Months or Most Recently Relevant to Health Maintenance Results * SCAN-ULTRASOUND REPORT (11/05/2024 12:00 AM VOLLEYBALL COACH) Only the most recent of3 resultswithin the time period is included. Anatomical Region Laterality Modality Other us Scanner OTHER Final Result * HPV HIGH RISK (10/15/2023 4:00 PM VOLLEYBALL COACH) TYPE 16 Negative Negative 10/18/2023 11:35 AM VOLLEYBALL COACH [facility] TYPE 18 Negative Negative 10/18/2023 11:35 AM VOLLEYBALL COACH [facility] OTHER HIGH RISK TYPES Negative Negative 10/18/2023 11:35 AM VOLLEYBALL COACH [facility] Other (Cervical) Non-Blood / Unknown 10/15/2023 4:00 PM VOLLEYBALL COACH 10/16/2023 2:26 PM VOLLEYBALL COACH Narrative [facility] - 10/18/2023 11:35 AM VOLLEYBALL COACH HPV types 16, 18, 31, 33, 35, 39, 45, 51, 52, 56, 58, 59, 66 and 68 DNA were undetectable or below the pre-set threshold. Methodology: Renaldo Ned 4800 HPV Test us Sirisha Nelson MD MICROBIOLOGY Fi nal Result [facility] [address] [place] [address], [place] from Last 3 Months or Most Recently Relevant to Health Maintenance Insurance [facility] KOMAL MENDOZA [id number] Care Teams Computer Network Support Specialist Relationship Specialty Start Date End Date Sirisha Nelson [place] [address] PCP - General Family Practice 10/15/23
[2024-11-10 17:55] LABS: Basophils Absolute Auto 0.07 K/uL (0.00-0.30); Basophils Percent Auto 0.7 % (0.0-3.0); Hematocrit 32.9 % (33.0-51.0); Hemoglobin* 11.1 gm/dL (12.0-16.0); Immature Granulocytes Abs Auto 0.02 K/uL (0.00-0.30); Immature Granulocytes Pct Auto 0.2 %; Lymphocytes Absolute Auto 2.19 K/uL (0.90-2.90); Lymphocytes Percent Auto 21.9 % (20-44); Mean Corpuscular HGB Conc 34 gm/dL (32-36); Mean Corpuscular Hemoglobin 30 pg (26-34); Mean Corpuscular Volume 88 fL (80-100); Monocytes Percent Auto 6.3 % (0.0-11.0); Neutrophils Absolute Auto 6.91 K/uL (1.7-7.0); Neutrophils Percent Auto 68.9 % (42.0-72.0); Platelet Count* 308 K/uL (140-440); Red Blood Count 3.72 m/uL (4.00-5.20); White Blood Count* 10.02 K/uL (4.50-11.00)
[2024-11-10 17:57] LABS: Slide Review Reflex No
== END 2024-11-10 19:37 | disposition home or self-care (01) ==
PROVIDERS: Family Medicine; Emergency Provider Family Medicine; PCP Student in an Organized Health Care Education/Training Program
DX: O03.9 Complete or unspecified spontaneous abortion without complication (principal)
CPT/HCPCS: 36415; 76830; 84702; 85025; 99284

== ENCOUNTER 2024-12-22 14:12 | Outpatient (CLI) | payer OTHER, SELFPAY | END 2024-12-22 14:13 | disposition home or self-care (01) | PROVIDERS: PCP Student in an Organized Health Care Education/Training Program; Visit Provider Midwife | DX: O03.9 Complete or unspecified spontaneous abortion without complication (principal) | CPT/HCPCS: 84443; 84702 ==

== ENCOUNTER 2025-05-22 13:44 | Outpatient (CLI) | payer OTHER, SELFPAY | END 2025-05-22 13:45 | disposition home or self-care (01) | PROVIDERS: PCP Student in an Organized Health Care Education/Training Program; Visit Provider Midwife | DX: E28.2 Polycystic ovarian syndrome (principal); N92.6 Irregular menstruation, unspecified; Z79.899 Other long term (current) drug therapy | CPT/HCPCS: 82306; 82670; 83001; 83520; 84146; 84270; 84402; 84403; 84432; 84439; 84443; 84450; 84460; 84481; 86376; 86800 ==

== ENCOUNTER 2025-06-15 15:50 | Outpatient (CLI) | payer OTHER, SELFPAY | END 2025-06-15 15:51 | disposition home or self-care (01) | LOC: NFLDREF 06-28 05:38 | PROVIDERS: PCP Student in an Organized Health Care Education/Training Program; Referring Provider Student in an Organized Health Care Education/Training Program; Visit Provider Midwife | DX: N92.6 Irregular menstruation, unspecified (principal) | CPT/HCPCS: 83498; 84144 ==

== ENCOUNTER 2025-06-24 13:26 | Outpatient (CLI) | payer OTHER, SELFPAY | END 2025-06-24 13:27 | disposition home or self-care (01) | LOC: NFLDREF 13:28 | PROVIDERS: PCP Student in an Organized Health Care Education/Training Program; Visit Provider Midwife | DX: O09.291 Supervision of pregnancy with other poor reproductive or obstetric history, first trimester (principal) | CPT/HCPCS: 84144 ==

== ENCOUNTER 2025-06-30 09:08 | Outpatient (CLI) | payer OTHER, SELFPAY | END 2025-06-30 09:09 | disposition home or self-care (01) | LOC: NFLDREF 09:08 | PROVIDERS: PCP Student in an Organized Health Care Education/Training Program; Visit Provider Advanced Practice Midwife | DX: Z34.91 Encounter for supervision of normal pregnancy, unspecified, first trimester (principal) | CPT/HCPCS: 84702 ==

== ENCOUNTER 2025-07-02 15:35 | Outpatient (CLI) | payer OTHER, SELFPAY | END 2025-07-02 15:36 | disposition home or self-care (01) | LOC: NFLDREF 07-09 03:43 | PROVIDERS: PCP Student in an Organized Health Care Education/Training Program; Referring Provider Student in an Organized Health Care Education/Training Program; Visit Provider Advanced Practice Midwife | DX: O20.9 Hemorrhage in early pregnancy, unspecified (principal) | CPT/HCPCS: 84702 ==

== ENCOUNTER 2025-07-08 12:01 | Outpatient (CLI) | payer OTHER, SELFPAY ==
--- NOTE | 2025-07-08 12:15 | CRLHL7_ITS ---
For Patients: As a result of the Century Cures Act, medical imaging exams and procedure reports are released immediately into your electronic medical record. You may view this report before your referring provider. If you have questions, please contact your health care provider. OB ULTRASOUND FIRST TRIMESTER, TRANSVAGINAL INDICATION: Bleeding. TECHNIQUE: Real time blanco scale imaging of the fetus was performed. Transvaginal imaging performed. LMP: 05/18/2025. TIAGO by LMP: 02/22/2026. GA: 7 w, 2 d. Previous US: No. CRL: 0.5 cm. 6 w 1 d. TIAGO: 03/02/2026. FHR: 114/119 BPM. Gestational sac: 1.7 cm. Appears within normal limits. Yolk sac: 2.7 mm. Appears within normal limits. Right ovary: Within normal limits. 3.1 x 2.2 x 2.9 cm. Left ovary: Within normal limits. 3.1 x 2.1 x 2.8 cm. CL. IMPRESSION: 1. Single living intrauterine measures 6 weeks 1 day and sonographic due date 03/02/2026. 2. heart rate 116 beats per minute. Follow up could be considered. Fidel Vinson M.D. Diagnostic Radiologist [email or web address] SP/Dictated by: Fidel Vinson MD @ 07/08/2025 6:14:00 PM (Electronically Signed)
== END 2025-07-08 12:02 | disposition home or self-care (01) ==
LOC: US 12:01
PROVIDERS: PCP Student in an Organized Health Care Education/Training Program; Visit Provider Advanced Practice Midwife
DX: O20.9 Hemorrhage in early pregnancy, unspecified (principal); Z3A.01 Less than 8 weeks gestation of pregnancy
CPT/HCPCS: 76817

== ENCOUNTER 2025-07-21 17:32 | Outpatient (CLI) | payer OTHER, SELFPAY ==
--- NOTE | 2025-07-21 17:30 | CRLHL7_ITS ---
For Patients: As a result of the Century Cures Act, medical imaging exams and procedure reports are released immediately into your electronic medical record. You may view this report before your referring provider. If you have questions, please contact your health care provider. OB ULTRASOUND FIRST TRIMESTER TRANSVAGINAL INDICATION: Follow-up viability. TECHNIQUE: Real time blanco scale imaging of the fetus was performed. Transvaginal imaging performed. Previous US: Yes, 07/08/2025. TIAGO by US: 03/02/2026. GA: 6 w, 1 d. CRL: 1.8 cm. 8 w 1 d. TIAGO: 03/01/2026. FHR: 178 BPM. Gestational sac: 3.0 cm. Appears within normal limits. Yolk sac: 2.9 mm. Appears within normal limits. Right ovary: Within normal limits. 3.7 x 1.8 x 2.2 cm. Left ovary: Within normal limits. 3.2 x 1.6 x 2.4 cm. IMPRESSION: Single living intrauterine measures 8 weeks 1 day with sonographic due date 03/01/2026. Fidel Vinson M.D. Diagnostic Radiologist [email or web address] SP/Dictated by: Fidel Vinson MD @ 07/22/2025 11:36:00 AM (Electronically Signed)
== END 2025-07-21 17:33 | disposition home or self-care (01) ==
LOC: US 17:32
PROVIDERS: PCP Student in an Organized Health Care Education/Training Program; Visit Provider Registered Nurse
DX: Z34.91 Encounter for supervision of normal pregnancy, unspecified, first trimester (principal); Z3A.08 8 weeks gestation of pregnancy
CPT/HCPCS: 76817

== ENCOUNTER 2025-07-21 18:13 | Outpatient (CLI) | payer OTHER, SELFPAY ==
[2025-07-21 21:49] LABS: Chlamydia DNA Amplified* NOT DETECTED (No Detected); GC DNA Amplified* NOT DETECTED (No Detected)
== END 2025-07-21 18:14 | disposition home or self-care (01) ==
PROVIDERS: PCP Student in an Organized Health Care Education/Training Program; Visit Provider Registered Nurse
DX: Z34.91 Encounter for supervision of normal pregnancy, unspecified, first trimester (principal); Z3A.08 8 weeks gestation of pregnancy
CPT/HCPCS: 76817; 83020; 83021; 85660; 86592; 86703; 86704; 86762; 86787; 86803; 86850; 87086; 87340; 87491; 87591

== ENCOUNTER 2025-08-20 14:57 | Outpatient (CLI) | payer OTHER, SELFPAY | END 2025-08-20 14:58 | disposition home or self-care (01) | PROVIDERS: PCP Student in an Organized Health Care Education/Training Program; Visit Provider Midwife | DX: Z34.81 Encounter for supervision of other normal pregnancy, first trimester (principal) | CPT/HCPCS: 86706 ==